=== PATIENT | female | born 2000 ===

== ENCOUNTER 2024-12-26 09:27 | Outpatient (CLI) | payer BC ==
--- NOTE | 2024-12-26 12:15 | RADIOLOGY REPORT ---
CLINICAL INDICATION: PAIN IN LEFT KNEE TECHNIQUE: Multiplanar, multisequence MRI of the left knee was performed without contrast. Contrast: None. COMPARISON: None FINDINGS: Joint space and synovium: There is no joint effusion, popliteal cyst or synovial thickening. Bones and articular cartilage: There is no evidence of acute fracture or bone marrow edema. The alignment is normal. The articular cartilage is preserved in the patellofemoral, medial and lateral tibiofemoral compartment. Menisci: The medial meniscus is intact. The lateral meniscus is intact. Tendons and ligaments: The tendons in the posterior knee are intact. The extensor mechanism is intact. The anterior cruciate ligament is intact. The posterior cruciate ligament is intact. The medial collateral ligament and the lateral collateral ligament stabilizing complex are intact. Muscles: Regional muscles are preserved in bulk and signal characteristics. Other: There is trace fluid in the deep infrapatellar bursa. IMPRESSION: 1. No evidence of meniscus, ligament or acute bone injury in the left knee. 2. Trace fluid in the deep infrapatellar bursa which may reflect mild bursitis.
== END 2024-12-26 23:59 | disposition home or self-care (01) ==
LOC: MRI02 09:27
PROVIDERS: ATTEND Family Medicine Sports Medicine
DX: S83.282A Other tear of lateral meniscus, current injury, left knee, initial encounter (principal); S83.512A Sprain of anterior cruciate ligament of left knee, initial encounter; M77.9 Enthesopathy, unspecified; M25.562 Pain in left knee; X58.XXXA Exposure to other specified factors, initial encounter; Y93.89 Activity, other specified; Y92.89 Other specified places as the place of occurrence of the external cause; Y99.8 Other external cause status
CPT/HCPCS: 73721